=== PATIENT | female | born 1970 ===

== ENCOUNTER → 2021-06-22 | Outpatient (CLI) | payer SELFPAY | END | disposition home or self-care (01) | LOC: LAB SHORT 11:15 | DX: D22.71 Melanocytic nevi of right lower limb, including hip (principal) | CPT/HCPCS: 88305 ==

== ENCOUNTER → 2021-07-26 | Outpatient (CLI) | payer OTHER | END | disposition home or self-care (01) | LOC: LAB SHORT 14:56 | DX: D22.71 Melanocytic nevi of right lower limb, including hip (principal); Z98.890 Other specified postprocedural states | CPT/HCPCS: 88305 ==